=== PATIENT | male | born 1985 | race African-American/Black ===

== ENCOUNTER → 2020-01-10 | Outpatient (CLI) | payer OTHER ==
--- NOTE | 2020-01-10 13:05 | REP ---
Chest x-ray: Two views. History: Health screening . Comparison study: No comparison study . Findings: The lungs are well inflated and free of infiltrate. The pleural angles are sharp. The heart size is normal. Pulmonary vasculature is not increased. No significant bony abnormality is seen. Impression: Negative chest x-ray. Electronically Signed by Jose Enrique Lovell MD 01/10/2020 12:56 P
== END ==
LOC: M RAD 08:36
PROVIDERS: ATTEND Surgery
DX: Z00.00 Encounter for general adult medical examination without abnormal findings (principal)